=== PATIENT | male | born 1950 | race Two or more races ===

== ENCOUNTER → 2020-07-22 08:03 | Outpatient (CLI) | payer OTHER | END | disposition home or self-care (01) | LOC: LAB 08:03 | PROVIDERS: ATTEND General Practice | DX: E78.2 Mixed hyperlipidemia (principal) ==

== ENCOUNTER 2023-06-03 08:15 | Outpatient (CLI) | payer OTHER | END 2023-06-03 13:48 | disposition home or self-care (01) | LOC: LAB 08:15 | DX: E78.2 Mixed hyperlipidemia (principal); N40.0 Benign prostatic hyperplasia without lower urinary tract symptoms; I10 Essential (primary) hypertension; E08.8 Diabetes mellitus due to underlying condition with unspecified complications; E03.8 Other specified hypothyroidism; R07.89 Other chest pain ==

== ENCOUNTER 2024-06-20 08:16 | Outpatient (CLI) | payer OTHER ==
[2024-06-20 09:32] LABS: URINE APPEARANCE Clear; URINE BILIRRUBIN Negative (NEGATIVE); URINE BLOOD Negative; URINE COLOR Yellow; URINE GLUCOSE Negative (NEGATIVE); URINE KETONE Negative (NEGATIVE); URINE LEUKOCYTE Negative; URINE NITRATE Negative; URINE PROTEIN Negative (NEGATIVE); URINE UROBILINOGEN 0.2 E.U./dl
[2024-06-20 09:34] LABS: HEMATOCRIT 40.7 % (39.0-48.0); HEMOGLOBIN 14.5 g/dL (13-16.00); MEAN CORPUSCULAR HEMOGLOBIN 29.9 pg (27.00-32.0); MEAN CORPUSCULAR HGB CONC 35.6 g/dl (32.0-36.0); PLATELET COUNT 213 K/uL (150-450); RED BLOOD COUNT 4.84 M/uL (4.00-6.00); RED CELL DISTRIBUTION WIDTH 14.1 % (11.5-14.5)
[2024-06-20 09:38] LABS: URINE BACTERIA 7.5 uL (0.0-1933); URINE EPITHELIAL CELLS 11.2 uL (0.0-38.8); URINE RBC 4.1 uL (0.0-20.8)
[2024-06-20 10:12] LABS: URINE CAST 0.15 uL (0.0-1.40); URINE WBC 1.3 uL (0.0-23.2)
[2024-06-20 10:28] LABS: ob NEGATIVE (NEGATIVE)
[2024-06-20 10:37] LABS: ALBUMIN 3.7 gm/dL (3.4-5.0); BILIRUBIN TOTAL 0.73 mg/dL (0.3-1.2); CALCIUM 8.9 mg/dL (8.5-10.1); CHOL HDL RATIO 2.3 (0-5.0); CREATININE SERUM 0.98 mg/dL (0.70-1.30); GFR 74.97; GLOBULINA 3.3 G/DL (2.4-3.5); POTASSIUM 4.23 mEq/L (3.5-5.1)
[2024-06-20 10:38] LABS: TSH 0.348 uIU/mL (0.358-3.74)
== END 2024-06-20 08:24 | disposition home or self-care (01) ==
LOC: LAB 08:16
DX: E11.69 Type 2 diabetes mellitus with other specified complication (principal); I11.9 Hypertensive heart disease without heart failure; E78.2 Mixed hyperlipidemia; E03.8 Other specified hypothyroidism; Z12.11 Encounter for screening for malignant neoplasm of colon; Z11.59 Encounter for screening for other viral diseases